=== PATIENT | male | born 1990 | race African-American/Black ===

== ENCOUNTER 2022-03-21 21:27 | Emergency (ER) | payer MEDICARE, MEDICAID | END 2022-03-21 23:01 | disposition home or self-care (01) | LOC: ERS 21:27 | DX: Z00.00 Encounter for general adult medical examination without abnormal findings (principal); F17.210 Nicotine dependence, cigarettes, uncomplicated | CPT/HCPCS: 99283 ==

== ENCOUNTER 2023-04-07 15:57 | Emergency (ER) | payer MEDICARE, MEDICAID | END 2023-04-07 18:30 | disposition home or self-care (01) | LOC: ERS 15:57 | DX: T63.461A Toxic effect of venom of wasps, accidental (unintentional), initial encounter (principal) | CPT/HCPCS: 99282 ==